=== PATIENT | female | born 1995 | race Caucasian/White ===

== ENCOUNTER 2022-12-27 19:11 | Emergency (ER) | payer MEDICAID ==
[~2022-12-27] VITALS: Ht 157.5 cm; Wt 101.2 kg
[2022-12-27 19:46] VITALS: BP 116/80
--- NOTE | 2022-12-28 00:32 | NUR ---
pt ambulated to bed #6
--- NOTE | 2022-12-28 00:45 | NUR ---
Joss taveras in ED - 12/28/22 at 0045 by SIOBHAN - CALLED [facility] FOR ADMISSION (CONFIRMED WITH CRISTOBAL MELCHOR ). DR. LINDSEY - SPOKE WITH
--- NOTE | 2022-12-28 00:46 | NUR ---
Dr. Steve examining patient.
--- NOTE | 2022-12-28 00:46 | NUR ---
27 Y/O F presents with rectal pain due to constipation x2 weeks. pt stated pain feels like pressure around rectum and 7/10 pain. pt stated she took miralax x1week daily with no relief. pt stated shes been bloated with nausea. pt is A&Ox4, skin intact, respirations even and unlabored. pt stated shes been drinking plenty of water. pmh-pt denies NKA
[2022-12-28] MEDS ORDERED: IBUP-2213 PO (00:56)
[2022-12-28] MEDS ORDERED: BENZ5NMA RC (00:57)
[2022-12-28] MEDS ORDERED: MAGN400S60 PO (00:57)
--- NOTE | 2022-12-28 01:05 | NUR ---
Patient discharged with v/s stable. Written and verbal after care instructions given and explained. Patient alert, oriented and verbalized understanding of instructions. Ambulatory with by parent. All questions addressed prior to discharge. ID band removed. Patient advised to follow up with PMD. Rx of Docusate Sodium, Ibuprofen, and magnesium Hydroxide given. Opportunity to ask questions provided and answered.
== END 2022-12-28 01:05 | disposition home or self-care (01) ==
LOC: MED 19:11
DX: K59.00 Constipation, unspecified (principal); K62.89 Other specified diseases of anus and rectum; Z79.899 Other long term (current) drug therapy; Z79.1 Long term (current) use of non-steroidal anti-inflammatories (NSAID)
CPT/HCPCS: 99282